=== PATIENT | male | born 1950 | race Caucasian/White ===

== ENCOUNTER 2019-06-14 12:45 | Day surgery (SDC) | payer OTHER, SELFPAY ==
--- NOTE | 2019-06-14 | PATH_ITS ---
[facility] Accession Number: [id number] . 01 Material submitted: . colon - POLYP TRANSVERSE COLON . 02 Diagnosis: Polyp Transverse Colon: Portions of tubular adenoma x3. MRV 06/17/2019 1509 Local . 02 Electronically signed: . Renea Holman MD, Pathologist NPI- [id number] . 01 Gross description: . POLYP TRANSVERSE COLON: Received in formalin are 3 fragment(s) of woods, soft tissue measuring 0.5 x 0.3 x 0.3 cm to 0.2 x 0.1 x 0.1 cm submitted entirely in 1 cassette(s) /QBJ 06/14/2019 2249 Local . 02 Pathologist provided ICD-10: Z12.11, K63.5 . 02 CPT . [id number] Performed at: 01 [facility] [address] [id number] MD Joey Maddox MD Phone: [phone] Performed at: 02 [facility] [address] [place], [place] [id number] MD Rosita Calvo MD Phone: [phone]
--- NOTE | 2019-06-14 13:05 | PM.PREOP ---
Pre-operative Note Interval Note History & Physical reviewed/Exam performed by Physician: Yes Changes to H&P: No ASA Class (for procedural sedation): II
--- NOTE | 2019-06-14 13:05 | PM.OP.ENDO ---
Operative Date/Time/Diagnoses Date of procedure: 06/14/19 Time of procedure: 13:18 Pre-op diagnosis: 1. History of colon polyps 2. Screening for colon cancer Post-op diagnosis: other (Transverse polyp x1, 8 mm, removed with cold snare) Procedure & Clinicians Study performed: 1. Colonoscopy Indications: 1. History of colon polyps 2. Screening for colon cancer Surgeon: Belkis Maza Procedure Notes Procedure in detail: ENDOSCOPIST: Belkis Maza MD Sedation RN: Aydee Garcia RN Sedation start time: 1:18 p.m. Sedation and time: 2:03 p.m. PROCEDURE: Colonoscopy with cold snare biopsy and methylene blue lift INDICATIONS: 1. History of colon polyps 2. Screening for colon cancer MEDICATION: Levsin 0.125 mg sublingual, incremental doses of Versed and fentanyl until appropriate level sedation achieved. ASA CLASS: 2 CECAL WITHDRAWAL TIME: 22 minutes COMPLICATIONS: None. EXTENT OF PROCEDURE: Cecum. QUALITY OF PREP: Good with portions of liquid stool. PROCEDURE: Prior to insertion of the colonoscope, a digital rectal examination was accomplished with circumferential palpation of the distal rectal mucosa without significant findings being noted. The high-definition colonoscope was passed into the rectum in the usual fashion and advanced over to the cecum without difficulty. The ileocecal valve, appendiceal stoma, and medial wall all could be inspected and no abnormalities were seen. ASCENDING COLON: As the colonoscope was withdrawn, care was taken to expose and inspect the haustral folds and no abnormalities were seen. HEPATIC FLEXURE: Normal no polyps, diverticula or other abnormalities. TRANSVERSE COLON: An 8 mm sessile polyp with lifted with methylene blue and removed with cold snare, hemoclip placed x1, excellent hemostasis. Otherwise, normal, no polyps, diverticula or other abnormalities. DESCENDING COLON: Normal no polyps, diverticula or other abnormalities. SIGMOID COLON: Minor diverticulosis, otherwise, normal, no polyps or other abnormalities. RECTUM: Normal. J maneuver was produced. There was no significant perianal disease. The J maneuver was broken. The remainder of the rectum was inspected and there was no external hemorrhoid disease. The scope was withdrawn. IMPRESSION: 1. Transverse polyp x1, 8 mm, lifted with methylene blue and removed with cold snare 2. Diverticulosis, mild, sigmoid PLAN: 1. Follow-up in clinic status post pathology results. The possibility of a missed lesion including a malignancy has been discussed with the patient previously. Potential alarm symptoms have been discussed and should be reported immediately. Scope withdrawal time: 22 Sedation minutes: 45 Findings: diverticulosis and polyp Specimen(s): other Complications: none Impression: As above. Post-procedure Recommendations: Will call with biopsy results Follow up: weeks (2) Disposition: PACU
[2019-06-14 13:07] VITALS: BP 149/91; PULSE 76; RESP 20; TEMP 36.3; O2SAT 99; BMI 38.2
[2019-06-14] MEDS: HYOSCYAMINE 0.125 MG TABLET PO (13:13)
[2019-06-14] MEDS: SODIUM CHLORIDE 0.9% 1,000 ML 200 ML IV (13:13)
[2019-06-14] MEDS: GLUCAGON,HUMAN RECOMBINANT 1 MG/ML VIAL IV (13:50)
[2019-06-14] MEDS: MIDAZOLAM 5 MG/5 ML VIAL IV (13:59)
[2019-06-14] MEDS: fentaNYL 250 MCG/5 ML INJ IV (14:00)
[2019-06-14 14:07] VITALS: BP 137/80; PULSE 67; RESP 14; O2SAT 98
[2019-06-14 14:14] VITALS: BP 128/73; PULSE 66; RESP 16; TEMP 36.7; O2SAT 97
[2019-06-14 14:17] VITALS: BP 143/82; PULSE 68; RESP 10; TEMP 36.6; O2SAT 99
--- NOTE | 2019-06-14 14:18 | SUR.PHASEI ---
Dr batres spoke with pt. Stable PACU stay.
[2019-06-14 14:30] VITALS: BP 142/83; PULSE 64; RESP 16; TEMP 36.6; O2SAT 98
== END 2019-06-14 14:39 | disposition home or self-care (01) ==
PROVIDERS: Visit Provider Student in an Organized Health Care Education/Training Program
PROC: 0DJD8ZZ Inspection of Lower Intestinal Tract, Via Natural or Artificial Opening Endoscopic (ICD-10-PCS; CPT 45378; principal; 2019-06-14 14:00)
DX: Z86.010 Personal history of colon polyps (principal); D12.3 Benign neoplasm of transverse colon; K57.30 Diverticulosis of large intestine without perforation or abscess without bleeding
CPT/HCPCS: 45381; 45385; J1610; J2250; J3010

== ENCOUNTER → 2020-04-06 09:00 | Outpatient (CLI) | payer MEDICARE, SELFPAY | PROVIDERS: Visit Provider Specialist | DX: C61 Malignant neoplasm of prostate (principal); N39.0 Urinary tract infection, site not specified; N43.3 Hydrocele, unspecified; N52.9 Male erectile dysfunction, unspecified | CPT/HCPCS: 87086; 99215 ==

== ENCOUNTER → 2020-09-09 12:49 | Outpatient (CLI) | payer MEDICARE, SELFPAY ==
[2020-09-09] MEDS: COVID-19 VACC #1, MRNA(MOD) 100 MCG/0.5 ML VIAL IM (12:56)
== END ==
PROVIDERS: Visit Provider Internal Medicine
DX: Z23 Encounter for immunization (principal)
CPT/HCPCS: 0011A; 91301

== ENCOUNTER → 2020-10-07 09:04 | Outpatient (CLI) | payer MEDICARE, SELFPAY ==
[2020-10-07] MEDS: COVID-19 VACC #2, MRNA(MOD) 100 MCG/0.5 ML VIAL IM (09:13)
== END ==
PROVIDERS: Visit Provider Internal Medicine
DX: Z23 Encounter for immunization (principal)
CPT/HCPCS: 0012A; 91301

== ENCOUNTER → 2021-05-12 08:06 | Outpatient (CLI) | payer MEDICARE, SELFPAY ==
--- NOTE | 2021-05-12 | DI.US.S_ITS ---
PROCEDURE: US ABD AORTA ANEURYSM SCREEN INDICATIONS: SCREENING TECHNIQUE: Real time scanning was performed of the aorta and iliac arteries, with image documentation. COMPARISON: None. FINDINGS: Aorta: Proximal aortic diameter measures 2.9 cm. Mid-aorta measures 2.4 cm. Distal aortic diameter is 2.5 cm. Mild plaque at the aortic bifurcation. Iliac arteries: Right common iliac artery measures 1.4 cm. Left common iliac artery measures 1.6 cm. IMPRESSION: 1. 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 Recommend 5 year follow-up. 2. Mild atherosclerotic plaque at the bifurcation. Dictated by: Skyler Perez M.D. on 05/12/2021 at 9:52 Approved by: Skyler Perez M.D. on 05/12/2021 at 9:55
== END ==
PROVIDERS: PCP Family Medicine; Referring Provider Family Medicine; Visit Provider Family Medicine
DX: Z13.6 Encounter for screening for cardiovascular disorders (principal); I77.811 Abdominal aortic ectasia; I70.0 Atherosclerosis of aorta
CPT/HCPCS: 76706

== ENCOUNTER → 2022-07-19 13:12 | Outpatient (CLI) | payer MEDICARE, SELFPAY | PROVIDERS: Family Provider Family Medicine; PCP Family Medicine; Referring Provider Family Medicine; Visit Provider Family Medicine | DX: Z13.89 Encounter for screening for other disorder (principal) ==

== ENCOUNTER → 2022-09-14 12:45 | Outpatient (CLI) | payer MEDICARE, SELFPAY ==
--- NOTE | 2022-09-14 | DI.CT.S_ITS ---
PROCEDURE: CT SINUS SCREEN WO CON INDICATIONS: nasal polyp TECHNIQUE: Noncontrast 3.0 mm axial images acquired from the frontal sinuses to the mid-sella, with coronal and sagittal reformats. For radiation dose reduction, the following was used: automated exposure control, adjustment of mA and/or kV according to patient size. COMPARISON: None. FINDINGS: Polypoid soft tissue density in the right nasal cavity centered on the lateral nasal wall near the maxillary sinus outflow tract and adjacent middle nasal turbinate. This is best seen on coronal images 25-32 and measures approximately 1.3 x 1.1 x 0.8 cm. This along with mucosal thickening in the right maxillary sinus and a right Mukesh cell contribute to maxillary sinus outflow tract narrowing with complete obstruction and aerated secretions filling the right maxillary sinus. Right maxillary sinus bones thickening and sclerosis indicative of chronic sinusitis. Moderate to severe leftward nasal septal deviation with spurring creating a mucosal contact point at the left inferior nasal turbinate. Small right bailee bullosa. IMPRESSION: Right nasal cavity polyp producing acute on chronic bony right maxillary sinus outflow tract obstruction and acute right maxillary sinusitis, along with contributions from mucosal thickening and Mukesh cell. Dictated by: Mynor Jenkins M.D. on 09/14/2022 at 13:34 Approved by: Mynor Jenkins M.D. on 09/14/2022 at 13:37
== END ==
PROVIDERS: Family Provider Family Medicine; PCP Family Medicine; Referring Provider Otolaryngology; Visit Provider Otolaryngology
DX: J32.0 Chronic maxillary sinusitis (principal); J33.9 Nasal polyp, unspecified
CPT/HCPCS: 70486

== ENCOUNTER → 2022-11-10 14:20 | Outpatient (CLI) | payer MEDICARE, SELFPAY ==
--- NOTE | 2022-11-10 | DI.CT.S_ITS ---
PROCEDURE: CT SINUS SCREEN WO CON INDICATIONS: Chronic maxillary sinusitis TECHNIQUE: Noncontrast 3.0 mm axial images acquired from the frontal sinuses to the mid-sella, with coronal and sagittal reformats. For radiation dose reduction, the following was used: automated exposure control, adjustment of mA and/or kV according to patient size. COMPARISON: [facility], CT, CT SINUS SCREEN WO CON, 09/14/2022, 12:52. FINDINGS: Image quality: Excellent. Maxillary Sinuses: Moderate mucosal thickening is seen within the inferior right maxillary sinus. Minimal mucosal thickening is seen within the inferior left maxillary sinus. The medial pfeiffer of the maxillary sinuses are demineralized. Ethmoid Air Cells: No bony remodeling or destruction. Sinuses are clear. Sphenoid Sinuses: No bony remodeling or destruction. Sinuses are clear. Frontal Sinuses: No bony remodeling or destruction. Mild mucosal thickening is seen within the inferior medial left frontal sinus. Ostiomeatal Complexes: The left ostiomeatal complex is within normal limits. The right ostiomeatal complex is highly narrowed and is further narrowed by soft tissue thickening, with regional polyps. Miscellaneous: Visualized intra-orbital contents are normal. Small bilateral bailee bullosa can be seen. There is mild leftward nasal septal deviation, with a leftward directed bony nasal spur. Right-sided nasal polyps are seen. IMPRESSION: Paranasal sinus disease is seen, which is worst within the right maxillary sinus. The paranasal sinus disease is clearly improved compared to the 09/14/2022 examination. Highly narrowed right ostiomeatal complex seen. Right-sided nasal polyps. Areas of bony demineralization are seen, which are consistent with chronic sinusitis. Dictated by: Josesito Schuster M.D. on 11/10/2022 at 16:16 Approved by: Josesito Schuster M.D. on 11/10/2022 at 16:19
== END ==
PROVIDERS: Family Provider Family Medicine; PCP Family Medicine; Referring Provider Otolaryngology; Visit Provider Otolaryngology
DX: J32.8 Other chronic sinusitis (principal); J33.8 Other polyp of sinus; J34.2 Deviated nasal septum
CPT/HCPCS: 70486

== ENCOUNTER 2024-06-05 16:52 | Emergency (ER) | payer MEDICARE, SELFPAY ==
[2024-06-05 17:05] VITALS: BP 167/89; PULSE 70; RESP 17; TEMP 36.6; O2SAT 98; BMI 39.5
--- NOTE | 2024-06-05 18:08 | PC.NURSE ---
Pt states he tripped on side walk and his face hit the concrete. Pt denies taking blood thinners, denies LOC. Pt reports his right wrist feels sprain, tender to touch--- no obvious deformation. Small <2 cm laceration noted inbetween eye brow that pt states is from his glasses. Reports tetanus vaccination in that last year
--- NOTE | 2024-06-05 18:54 | ED_ITS ---
HPI - Wound/Laceration <Rosita Adams PA-C - Last Filed: 06/06/24 13:54> General Chief Complaint: Wound/Laceration Stated Complaint: fall on face Time Seen by Provider: 06/05/24 18:24 Source: patient Mode of arrival: Ambulatory History of Present Illness HPI narrative: Pleasant 73-year-old male presents to the emergency department with his , walking tonight hiking, turned around trip fell striking his face on the concrete, no loss of consciousness, got up underneath his own power. Patient presents with 2 superficial lacerations in between his eyebrows, soft tissue swelling to the nose, had epistaxis of the right nares currently no bleeding, right wrist discomfort and pain, mild abrasion to the palmar aspect of his right hand, some complaints of abrasion to the right upper lip, no other further complaints. Related Data Home Medications Medication Instructions Recorded Confirmed lisinopril 10 mg tablet 10 mg PO DAILY 06/14/19 06/05/24 Allergies Allergy/AdvReac Type Severity Reaction Status Date / Time No Known Drug Allergies Allergy Verified 04/06/20 08:24 Review of Systems <Rosita Adams PA-C - Last Filed: 06/06/24 13:54> Review of Systems Narrative: Negative except as above Patient History <Rosita Adams PA-C - Last Filed: 06/06/24 13:54> Medical History Erectile dysfunction Prostate cancer Onychomycosis Elevated PSA Prostate cancer Combined hyperlipidemia Hypertension Social History household members: spouse Smoking Status: Former smoker Smoking Status: Former smoker alcohol intake frequency: other Substance Use Type: marijuana Exam <Rosita Adams PA-C - Last Filed: 06/06/24 13:54> Initial Vital Signs Initial Vital Signs: Vital Signs Temperature 98 F 06/05/24 17:05 Pulse Rate 70 06/05/24 17:05 Respiratory Rate 17 06/05/24 17:05 Blood Pressure 167/89 H 06/05/24 17:05 Pulse Oximetry 98 06/05/24 17:05 Oxygen Delivery Method Room Air 06/05/24 17:05 Reviewed Const General: cooperative, healthy appearing, comfortable, well developed, well groomed, No acute distress, No in distress and No anxious Nutritional Appearance: average body habitus and well nourished [facility] Head: No hematoma and other (2 sup scalp lac in between his eyebrows amenable Dermabond) Nose: nares normal, nasal mucous membranes and turbinates normal, septum normal, epistaxis (Right side prior to being seen currently not bleeding) and external nose abnormal (Some mild soft tissue swelling) Mouth: No lip normal (Mild skin tear to the upper lip not suturable) Eyes General: Yes appearance normal, both eyes and all related structures Pupils: PERRL EOM: EOM intact bilaterally Neck Neck: normal visual inspection, full ROM, No no meningeal signs, trachea midline, No supple, anterior neck swelling and No tender Skin Other: Multiple wounds see face exam Neuro Other: Cranial nerves are grossly intact cognition, speech, gait, motor sensory is intact Extrem Other: Range of motion, strength, pulses, cap refill preserved in the upper and lower extremities. Patient has some right wrist discomfort and pain, however range of motion is not impaired, pulses are present, cap refill is preserved. Patient does not feel he needs an x-ray. Just feels that he sprained it. Caleb wrap applied. Psych Other: Appearance, mental status, speech, movement, mood, affect, attitude, thought process, thought content judgment all within normal limits <Elsa Silva MD - Last Filed: 06/06/24 18:50> Initial Vital Signs Initial Vital Signs: Vital Signs Temperature 98 F 06/05/24 17:05 Pulse Rate 70 06/05/24 17:05 Respiratory Rate 17 06/05/24 17:05 Blood Pressure 167/89 H 06/05/24 17:05 Pulse Oximetry 98 06/05/24 17:05 Oxygen Delivery Method Room Air 06/05/24 17:05 Procedures <Rosita Adams PA-C - Last Filed: 06/06/24 13:54> Laceration Repair Laceration 1: Time of procedure: 18:55 Site: face Description: linear and clean Depth: simple, single layer Skin layer closed with: dermabond Scores <Rosita Adams PA-C - Last Filed: 06/06/24 13:54> GCS Citation: 15 Course <Rosita Adams PA-C - Last Filed: 06/06/24 13:54> Vital Signs Vital signs: Vital Signs - 8 hr 06/05/24 17:05 Temperature 98 F Pulse Rate 70 Respiratory Rate 17 Blood Pressure 167/89 H Pulse Oximetry 98 Oxygen Delivery Method Room Air Reviewed <Elsa Silva MD - Last Filed: 06/06/24 18:50> Vital Signs Vital signs: Vital Signs - 8 hr 06/05/24 17:05 Temperature 98 F Pulse Rate 70 Respiratory Rate 17 Blood Pressure 167/89 H Pulse Oximetry 98 Oxygen Delivery Method Room Air MDM - Wound/Laceration <Rosita Adams PA-C - Last Filed: 06/06/24 13:54> MDM Narrative Medical decision making narrative: Very pleasant 73-year-old male presents to the emergency department after he sustained a mechanical fall today striking his face on cement. No loss of consciousness. Not on blood thinners. Sustained a right-sided epistaxis, 2 superficial lacerations in between his eyebrows, bleeding controlled, mild right wrist pain, mild volar skin abrasion on the right hand. Some mild musculoskeletal discomfort and pain. No other physical complaints. Exam shows a 2 superficial lacerations are amenable to Dermabond Dermabond applied after the wounds are cleaned. Nose exam shows that the septum is intact, no obvious signs of deformity, currently no epistaxis out of the right nares. Moderate amount of right-sided turbinate soft tissue swelling The skin abrasion on the upper lip is not amenable to any repairs, his teeth kind of just rubbed up against the upper lip, teeth are intact, no fractures are noted no instability on exam The right wrist exam is negative for any substantial acute findings, there was no obvious deformities, he is minimal discomfort with range of motion, patient decides he does not need an x-ray of his wrist or his nose, the right wrist is wrapped with an Caleb wrap. Wound care, Dermabond, patient discharged in stable condition with supportive therapy education ED precautions. Differential diagnosis; fall, facial abrasions, right wrist sprain, contusion to the nose, concussion, Discharge Plan Departure Patient Disposition: Home Clinical Impression: Contusion of nose, initial encounter Fall Qualifiers: Encounter type: initial encounter Qualified Code(s): W19.XXXA - Unspecified fall, initial encounter Right wrist sprain Qualifiers: Encounter type: initial encounter Qualified Code(s): S63.501A - Unspecified sprain of right wrist, initial encounter Abrasion of face Qualifiers: Encounter type: initial encounter Qualified Code(s): S00.81XA - Abrasion of other part of head, initial encounter Concussion Qualifiers: Encounter type: initial encounter Loss of consciousness presence/duration: without LOC Qualified Code(s): S06.0X0A - Concussion without loss of consciousness, initial encounter Activity Restrictions/Additional Instructions: You can shower The Dermabond please just pat it dry Do not apply any Neosporin or bacitracin You can take a baby aspirin daily if you would like A towel to the face and ice to the face do not apply ice directly to the your skin Tylenol ibuprofen as needed for discomfort and pain Caleb wrap for comfort Follow up with primary care doctor as needed Do not be surprised if you have bruising to the face and if it moves down your face this is very common Return to the emergency department as needed Do not be surprised if you have dizziness, lightheadedness, some mild nausea this is associated with possible concussion Prescriptions: No Action lisinopril 10 mg Tablet 10 mg PO DAILY Referrals: Kumar Bridges MD [Primary Care Provider] - Stand Alone Forms: Patient Portal/API ED Sign-out <Elsa Silva MD - Last Filed: 06/06/24 18:50> Cosign ED Attending Usha Attestation: I was immediately available in the department for consultation throughout this patient's visit. Elsa Silva MD
[2024-06-05 19:08] VITALS: RESP 18
== END 2024-06-05 19:09 | disposition home or self-care (01) ==
PROVIDERS: Emergency Provider Physician Assistant; Family Provider Family Medicine; PCP Family Medicine
DX: S06.0X0A Concussion without loss of consciousness, initial encounter (principal); S63.501A Unspecified sprain of right wrist, initial encounter; S00.81XA Abrasion of other part of head, initial encounter; S00.33XA Contusion of nose, initial encounter; S01.81XA Laceration without foreign body of other part of head, initial encounter; R04.0 Epistaxis; M25.531 Pain in right wrist; S60.811A Abrasion of right wrist, initial encounter; W01.10XA Fall on same level from slipping, tripping and stumbling with subsequent striking against unspecified object, initial encounter
CPT/HCPCS: 12011; 99281; 99282